=== PATIENT | male | born 1985 | race Caucasian/White ===

== ENCOUNTER 2018-06-18 10:22 | Outpatient (CLI) | payer OTHER, SELFPAY ==
[2018-06-18 10:30] VITALS: BP 139/92; PULSE 67; RESP 16; TEMP 36.7; O2SAT 99
[2018-06-18] MEDS: Midazolam 2 MG/2 ML VIAL IVP (11:12)
[2018-06-18] MEDS: Dexamethasone Sod. Phos./Pres-Free 10 MG/ML VIAL IJ (11:23)
[2018-06-18] MEDS: Omnipaque 240 MG/ML 50 ML BTL IJ (11:23)
--- NOTE | 2018-06-18 11:25 | PDOC.PAIN_ITS ---
Date of Service: 06/18/18 Time of Service: 11:24 Pain Clinic Procedure Note Cervical Epidural Steroid Injection DEV TRACEY has been [facility] for interlaminar cervical epidural steroid injection. COMMENTS: He was extremely anxious and this is the reason we gave IV sedation. I did review the notes from Ms. Collins. DX: Cervical radiculopathy Patient was interviewed and the medical record reviewed. There were no medical , pharmacologic, radiographic or other structural contraindications to attempting fluoroscopically guided epidural steroid injection. Risks and expected side effects as well as potential benefit of the procedure were reviewed and voiced concerns addressed. The printed consent form was signed and witnessed. Standard time-out procedure was performed. The patient was placed in the prone position on the fluoroscopy table and automated blood pressure cuff and pulse oximeter applied. The skin entry point for entering the epidural space by a midline C7-T1 interlaminar approach was identified under fluoroscopy and marked. Following thorough Chlorhexadine preparation of the skin and draping and 1% lidocaine infiltration of the skin entry point and subcutaneous tissues, an 18 gauge Tuohy needle was placed under fluoroscopic guidance and with loss of resistance technique into the epidural space. Upon needle placement and loss of resistance there were no paresthesiae or return of blood or CSF through the needle. 1ml of Omnipaque 240 were injected with clear epidural spread in the A/P, oblique views. 15mg of preservative-free Dexamethasone with 1ml sterile normal saline were injected through the needle with no unusual discomfort expressed. The needle was removed without difficulty. A bandage was placed. Vital signs were stable throughout the procedure and were as recorded in the docflowsheet by the nursing staff. If given, dosages of intravenous drugs for anxiolysis and analgesia were documented in MAR. Follow up plans and appointments were discussed. Post procedure instruction was given as documented in nursing documentation and having met discharge criteria and was discharged from the [facility]. COMMENTS: If this procedure is found to be effective, it can be completed up to 3 times per 12 months CC: Lynne Connell
[2018-06-18] MEDS: Lactated Ringers 1,000 ML 400 ML IV (11:26)
--- NOTE | 2018-06-18 11:26 | DI.REPORT_ITS ---
SYMPTOM/DIAGNOSIS: CERVICAL RADICULOPATHY C-ARM FLUOROSCOPY: 06/18 Fluoroscopy Time: 23.1 sec 2.05mGy C-arm fluoroscopy was utilized by Dr. Tyler during reported cervical epidural steroid injection. Hard copy shows needle placement and injection in what appears to be the epidural space at C7 level posteriorly.
[2018-06-18 11:34] VITALS: BP 145/88; PULSE 80; RESP 23; O2SAT 100
== END 2018-06-18 10:23 ==
PROVIDERS: PCP Registered Nurse; Visit Provider Preventive Medicine Occupational Medicine
DX: M54.12 Radiculopathy, cervical region (principal)
CPT/HCPCS: 62321; 99152; 99153; 72040; J2250; Q9967

== ENCOUNTER 2018-06-30 14:58 | Outpatient (CLI) | payer OTHER, SELFPAY ==
--- NOTE | 2018-07-02 08:11 | ONE_ITS ---
OCCUPATIONAL MEDICINE NOTE DATE OF SERVICE June 30, 2018 ASSESSMENT Cervical disc herniation, neck pain improved. PLAN Seeking approval for a second injection through the Pain Clinic, referral for that will be arranged. Continue the gabapentin 600 mg, no need to increase further as he seems to be getting nighttime relief from that, although he is aware that we could titrate further if needed. Continue PT, which seems to be quite helpful. Still not able to return to work, but I expect if he gets a similar degree of relief from a second epidural injection that we could return him with some light duty limitations. He is looking forward to returning. Followup is to be arranged, once we know the approval or timing on next Pain Clinic visit. A TENS unit was prescribed for him today. Greater than 50% of this visit spent in planning and coordinating care. EMPLOYER Micheal. SUBJECTIVE Mr. Velasco comes in today for followup on neck pain, which he tells me did improve significantly following his recent cervical epidural injection through the [facility]. He estimates that it improved about 40%, although the first two days following the injection were worse. It did improve quickly thereafter and relief has been maintained. He remains very stiff, but he tells me that this is more localized now and he notices that rotation to the right is particularly difficult, while rotation to the left is no longer difficult. He does continue to have intermittent numbness in the third, fourth and fifth digits on the right hand, but it is occurring less than it had preinjection. Post injection, it actually occurred a couple of times in the third, fourth and fifth digits on the left hand as well, but it has not recurred in several days. At PT, cervical traction has helped his discomfort. Additionally, the gabapentin , which he is taking at 600 mg at bedtime has also improved his sleep. REVIEW OF SYSTEMS Feels well. No fevers. No chills. No further ear pain. No chest pain, cough, wheeze or dyspnea, abdominal pain, nausea, vomiting, or GI complaints. PAST MEDICAL HISTORY Hypertension, but not currently treated it has stabilized with lifestyle changes. CURRENT MEDICATIONS He does take the Suboxone at a stable dose prescribed by Dr. Pond, whom he sees in [place] regularly. Ibuprofen 800 mg, which he says he is trying to use less of. He is using it once or twice daily. Tylenol 1000 mg once or twice daily. Gabapentin 600 mg at bedtime. HABITS He smokes a pack of cigarettes daily. Alcohol only socially. ALLERGIES None to medications. OBJECTIVE Again he is alert, pleasant, cooperative. He does still move cautiously and in a stiff manner. Seems to be more relaxed, less distressed. Musculoskeletal - There is some tenderness to palpation of the distal cervical vertebrae, but it is less intense and there is much less spasm across the superior trap on the right. No tenderness across the sternocleidomastoid. No tenderness in the occipital regions. He has full flexion of the neck. Extension is still limited to about 35 degrees. He is able to rotate 45 degrees to the left. Rotation to the right is limited to about 30 degrees and does cause right neck discomfort.
== END 2018-06-30 14:59 ==
PROVIDERS: PCP Registered Nurse; Visit Provider Nurse Practitioner Family
DX: M54.12 Radiculopathy, cervical region (principal); M50.222 Other cervical disc displacement at C5-C6 level
CPT/HCPCS: 99214